=== PATIENT | female | born 1995 | race African-American/Black ===

== ENCOUNTER 2021-06-17 11:56 | Emergency (ER) | payer OTHER, MEDICAID ==
[~2021-06-17] VITALS: Ht 160 cm; Wt 77.1 kg
[~2021-06-17 11:56] MED LIST: ALBUTEROL2.5 MG/0.5 IH; ALLEGRA-D 24 H1 EACH PO; AMOXICILLIN 50500 MG PO; AZITHROMYCIN 2250 MG PO; BACTRIM DS TAB1 EACH PO; BUSPIRONE; CELEXA 20 MG TA20 M1; CLONAZEPAM 1 MG1 M1 PO; GEODON40 MG; HYDROXYZINE HCL25 M1; IBUPROFEN 800800 MG PO; LISINOPRIL20 MG; LOW-OGESTREL1 EACH; MECLIZINE 25 MG25 M1 PO; MEDROLDOSEPACK PO; NOHOMEMEDICATIONS; NORCO 5-325 TA1 EACH PO; PREDNISONE 20 M20 M1 PO; PRISTIQ50 MG; SEROQUEL 100 M100 M1 PER TUBE; TESSALON200 MG PO; ULTRAM 50MG TAB50 MG PO; VENTOLIN HFA 1818 GM INH; ZPAK PO
[2021-06-17 12:42] LABS: HEMATOCRIT 40.4 % (37.0-47.0); HEMOGLOBIN 13.4 gm/dL (12.0-15.0); MCH 26.5 pg (26.0-34.0); MCHC 33.3 g/dL (28.0-37.0); MCV 79.5 fL (80.0-100.0); MPV 8.5 fl. (7.2-11.1); RBC 5.08 mil/uL (4.20-5.00); RDW-CV 14.4 % (10.5-14.5); WBC 6.1 thou/uL (4.0-11.0)
[2021-06-17 12:50] LABS: CALCIUM 8.6 mg/dL (8.5-10.1); CREATININE 0.8 mg/dL (0.6-1.3); POTASSIUM 3.5 mmol/L (3.5-5.1)
[2021-06-17] MEDS ORDERED: HYDROCHLOROTHIA25 M1 PO (13:35)
[2021-06-17 14:06] VITALS: BP 186/94
== END 2021-06-17 14:07 | disposition home or self-care (01) ==
LOC: M.ERS 11:56
PROVIDERS: Emergency Medicine Emergency Medical Services
DX: R04.0 Epistaxis (principal); I10 Essential (primary) hypertension; F41.9 Anxiety disorder, unspecified; F32.9 Major depressive disorder, single episode, unspecified; F17.210 Nicotine dependence, cigarettes, uncomplicated; Z79.899 Other long term (current) drug therapy; Z88.8 Allergy status to other drugs, medicaments and biological substances